=== PATIENT | female | born 1970 | race Caucasian/White ===

== ENCOUNTER 2020-05-09 17:22 | Emergency (ER) | payer BC ==
[~2020-05-09] VITALS: Ht 162.6 cm; Wt 106.6 kg
[~2020-05-09 17:22] MED LIST: BACTRIM DS TAB1 EACH PO; PERCOCET 5-3251 EACH PO; ZOVIRAX5 GM TP
[2020-05-09] MEDS ORDERED: SYNTHROID100 MC1 PO (17:34)
[2020-05-09] MEDS ORDERED: CELEXA 10 MG TA10 M1 PO (17:34)
[2020-05-09] MEDS ORDERED: LISINOPRIL20 MG PO (17:35)
[2020-05-09] MEDS ORDERED: BUSPIRONE HCL10 MG PO (17:37)
[2020-05-09] MEDS ORDERED: ANTIBIOTIC28.4 GM TOP (18:04)
[2020-05-09 18:12] VITALS: BP 115/65
== END 2020-05-09 18:14 | disposition home or self-care (01) ==
LOC: M.ERS 17:22
DX: I88.9 Nonspecific lymphadenitis, unspecified (principal); L02.11 Cutaneous abscess of neck; I10 Essential (primary) hypertension; E03.9 Hypothyroidism, unspecified; Z79.899 Other long term (current) drug therapy